=== PATIENT | male | born 1940 | race Caucasian/White ===

== ENCOUNTER 2024-03-10 19:00 | Emergency (ER) | payer OTHER, MEDICARE, SELFPAY ==
[2024-03-10] VITALS (19 sets, daily range): BP systolic 121–175; BP diastolic 75–102; PULSE 87–101; RESP 16–29; O2SAT 90–98; BMI 26.6
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
--- NOTE | 2024-03-10 19:15 | XRR_ITS ---
PROCEDURE INFORMATION: Exam: XR Left Hand Exam date and time: 03/10/2024 7:54 PM Age: 83 years old Clinical indication: Left; Patient HX: Lt hand pain/swelling; 5th digit deformity TECHNIQUE: Imaging protocol: Radiologic exam of the left hand. Views: 3 or more views. COMPARISON: No relevant prior studies available. FINDINGS: Bones/joints: Deforming arthritis noted affecting the D IP is especially the 2nd, 3rd and 5th fingers. 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 No evidence of an acute fracture or dislocation. Soft tissues: Normal. XR/XR hand LT min 3V* [id number] IMPRESSION: No fracture or dislocation. Deforming arthritis.
--- NOTE | 2024-03-10 19:42 | XRR_ITS ---
PROCEDURE INFORMATION: Exam: XR Right Wrist Exam date and time: 03/10/2024 7:56 PM Age: 83 years old Clinical indication: Right; Patient HX: RT wrist pain/swelling TECHNIQUE: Imaging protocol: Radiologic exam of the right wrist. Views: 3 or more views. COMPARISON: No relevant prior studies available. FINDINGS: Bones/joints: There is a dorsal lateral impacted fracture of the distal radial epiphysis with dorsal angulation. Soft tissues: Soft tissue swelling XR/XR wrist RT min 3V* [id number] IMPRESSION: There is a dorsal lateral impacted fracture of the distal radial epiphysis with dorsal angulation.
[2024-03-10] MEDS: ondansetron 2 mg/ML SDV 2 mL 4 MG IVP (19:46)
[2024-03-10] MEDS: morphine 4 mg/mL SDV 1 mL IVP (19:48)
[2024-03-10 19:52] LABS: Basophils % 0.3 %; Eosinophils # 0.1 10^3/uL (0.0-0.8); Eosinophils % 0.5 %; Hematocrit 36.8 % (37-53); Lymphocytes # 0.6 10^3/uL (0.8-4.8); Lymphocytes % 6.4 %; Mean Corpuscular HGB Conc 32.6 g/dL (30-55); Mean Corpuscular Hemoglobin 30.6 pg (27-33); Mean Corpuscular Volume 93.9 fl (82-101); Mean Platelet Volume 10.7 fL (7.4-10.4); Monocytes # 0.5 10^3/uL (0.2-0.9); Monocytes % 5.7 %; Neutrophils # 8.24 10^3/uL (1.8-7.7); Neutrophils % 86.4 %; Nucleated Red Blood Cells % 0 %; Platelet Count 150 10^3/cmm (157-399); Red Blood Count 3.92 10^6/uL (3.85-5.65); Red Cell Distribution Width 14.1 % (12.1-15.1); White Blood Count 9.54 10^3/uL (3.29-11.43)
[2024-03-10 19:59] LABS: Charge for UA Resulting for Rev
[2024-03-10 20:04] LABS: INR 3.06 (0.8-1.2)
[2024-03-10 20:04] LABS: Bilirubin Urine Negative (Negative); Blood Urine 3+ (Negative); Glucose Urine UA Negative (Normal); Ketones Urine Negative (Negative); Leukocyte Esterase Urine Negative (Negative); Nitrate Urine Negative (Negative); Protein Urine Trace (Negative); Specific Gravity, Urine 1.025 (1.005-1.030); Urine Appearance Cloudy (CLEAR); Urine Color Yellow (Yellow); pH Urine 5.5 (5-7)
[2024-03-10 20:09] LABS: Bacteria Urine None Seen /hpf; Hyaline Casts Urine 0.81 /lpf; RBC Urine 51-100 /hpf (0-2); Squamous Epithelial Cell Urine 0-5 /hpf (0-5); WBC Urine 0-5 /hpf (0-5)
[2024-03-10 20:09] LABS: Alanine Aminotransferase 16 U/L (0-41); Albumin Level 3.4 g/dL (3.5-5.2); Alkaline Phosphatase 70 U/L (40-130); Anion Gap 14.8 (5-19); Aspartate Amino Transferase 29 U/L (0-40); Blood Urea Nitrogen 19 mg/dL (8-23); Calcium 7.4 mg/dL (8.5-10.5); Carbon Dioxide 21 mmol/L (22-29); Chloride 107 mmol/L (98-107); Creatinine Clr Calc Pharmacy 51.4688; Glucose 128 mg/dL (65-115); Osmolality Calculated 292 mOsm/kg (285-295); Potassium 3.8 mmol/L (3.5-5.1); Sodium 139 mmol/L (136-145); Total Bilirubin 0.3 mg/dL (0.15-1.2); Total Protein 5.4 g/dL (6.6-8.7)
[2024-03-10 20:11] LABS: Add Urine Culture? Yes
[2024-03-10] MEDS: ceFAZolin 2,000 mg SDV 2000 MG IVP (21:05)
[2024-03-10] MEDS: hum prothrombin cplx(pcc)4fact 1,000 UNIT, hum prothrombin cplx(pcc)4fact 500 UNIT in e... 504 UNIT IV (21:19)
[2024-03-11] MEDS: iohexol 350 mg/mL 500 mL Btl (per mL) IV (15:35)
== END 2024-03-10 21:24 ==
PROVIDERS: Emergency Provider Emergency Medicine
DX: S12.090A Other displaced fracture of first cervical vertebra, initial encounter for closed fracture (principal); S12.190A Other displaced fracture of second cervical vertebra, initial encounter for closed fracture; S82.142A Displaced bicondylar fracture of left tibia, initial encounter for closed fracture; Z79.01 Long term (current) use of anticoagulants; V89.2XXA Person injured in unspecified motor-vehicle accident, traffic, initial encounter; S30.1XXA Contusion of abdominal wall, initial encounter; S52.501A Unspecified fracture of the lower end of right radius, initial encounter for closed fracture
CPT/HCPCS: 29125; 70450; 70486; 71260; 72125; 73110; 73130; 73562; 74177; 80053; 81003; 81015; 85025; 85610; 86850; 86900; 87086; 96374; 96375; 99291; J0690; J2270; J2405; J7168